=== PATIENT | female | born 1940 | race Caucasian/White ===

== ENCOUNTER → 2024-07-11 | Outpatient (CLI) | payer MEDICARE, BC, SELFPAY ==
--- NOTE | 2024-07-11 14:47 | XR_ITS ---
Examination: Knee bilateral, 6 views Technique: Knee AP, lateral, oblique each knee total 6 views Date and time of exam: July 11, 2024 1541 hours INDICATIONS: Patient fell one month ago with injury to both knees, bilateral knee pain. 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
--- NOTE | 2024-07-11 14:47 | XR_ITS ---
Examination: PA lateral chest 2 views TECHNIQUE: Upright PA lateral chest 2 views Exam date and time: July 11, 2024 1457 hours Comparison 07/18/2023 INDICATIONS: Coughing beginning 3 months ago FINDINGS: No significant cardiac enlargement No pneumonia or pulmonary edema Intact osseous structures IMPRESSION: No active disease
== END | disposition home or self-care (01) ==
LOC: CDIM 14:21
PROVIDERS: PCP Internal Medicine; Referring Provider Internal Medicine; Visit Provider Internal Medicine
DX: R05.3 Chronic cough (principal); S89.92XA Unspecified injury of left lower leg, initial encounter; S89.91XA Unspecified injury of right lower leg, initial encounter; W19.XXXA Unspecified fall, initial encounter
CPT/HCPCS: 71046; 73562

== ENCOUNTER → 2024-08-22 | Outpatient (CLI) | payer MEDICARE, BC, SELFPAY ==
[2024-08-22 11:57] LABS: Misc Send Out* See Sep Rpt
[2024-08-22 12:41] LABS: C-Reactive Protein < 0.4 mg/dL (0.0-0.9)
[2024-08-22 12:44] LABS: Vitamin D 25 Hydroxy Total 86.6 ng/mL (7.3-40.2)
[2024-08-22 12:46] LABS: Sed Rate (ESR) 39 mm/hr (0-30)
[2024-08-22 13:29] LABS: RA Screen Negative (Negative)
[2024-08-27 06:33] LABS: ANA Screen, IFA NEGATIVE (NEGATIVE)
== END | disposition home or self-care (01) ==
PROVIDERS: PCP Internal Medicine; Referring Provider Internal Medicine; Visit Provider Internal Medicine
DX: E03.9 Hypothyroidism, unspecified (principal); E55.9 Vitamin D deficiency, unspecified; F32.89 Other specified depressive episodes; I10 Essential (primary) hypertension; J45.40 Moderate persistent asthma, uncomplicated; K21.9 Gastro-esophageal reflux disease without esophagitis; M54.42 Lumbago with sciatica, left side; M79.7 Fibromyalgia; R05.3 Chronic cough
CPT/HCPCS: 36415; 82306; 85652; 86038; 86140; 86200; 86430

== ENCOUNTER → 2024-10-08 | Outpatient (CLI) | payer MEDICARE, BC, SELFPAY ==
--- NOTE | 2024-10-08 15:30 | XR_ITS ---
Examination: CT chest, without intravenous contrast. Sagittal and coronal 2-D reconstructions. Exam date and time: October 08, 2024 1601 hours INDICATIONS: Coughing congestion beginning one year ago CTDI:vol (mGy) 13.4 DLP: (mGycm) 461 Technique: Multiple 3.0 mm axial sections of the chest to been obtained. Bone and lung density settings are obtained. Sagittal and coronal 2-D reconstructions have been obtained. Low dose protocols were performed. One or more of the following dose reduction techniques were used; automated exposure control, adjustment of the mA and/or KV according to patient size, use of iterative reconstruction technique. Findings: No thoracic aortic aneurysm dilatation Pulmonary artery segments are not enlarged Mild calcification left anterior descending coronary artery Mild enlargement cardiac contour No paratracheal tracheobronchial or bronchopulmonary adenopathy No pneumonia, pulmonary edema, pleural disease or pulmonary nodules No focal liver or splenic lesions Absent gallbladder No pancreatic or adrenal mass Kidneys partially visualized no hydronephrosis Mild thoracic spondylosis IMPRESSION: No mediastinal lymphadenopathy No pneumonia, pulmonary edema, pleural disease or pulmonary nodules
== END | disposition home or self-care (01) ==
PROVIDERS: PCP Internal Medicine; Referring Provider Internal Medicine; Visit Provider Internal Medicine
DX: R05.3 Chronic cough (principal)
CPT/HCPCS: 71250

== ENCOUNTER → 2024-12-13 | Outpatient (CLI) | payer MEDICARE, BC, SELFPAY ==
[2024-12-13 10:37] LABS: Basophils # (Auto) 0.1 Thou/mm3 (0.0-0.2); Basophils % (Auto) 1 % (0-2.5); Eosinophils # (Auto) 0.3 Thou/mm3 (0.0-0.5); Eosinophils % (Auto) 4 % (0-10); Hematocrit 39.4 % (36.0-46.0); Hemoglobin 13.3 g/dL (12.0-16.0); Immature Granulocytes % (Auto) 0 % (0-0); Immature Granulocytes Auto 0.01 Thou/mm3 (0.00-0.00); Lymphocytes # (Auto) 1.8 Thou/mm3 (1.0-4.8); Lymphocytes % (Auto) 26 % (10-50); Mean Corpuscular HGB Conc 33.8 g/dl (31.0-37.0); Mean Corpuscular Volume 92 fL (80-100); Monocytes # (Auto) 0.7 Thou/mm3 (0.0-0.8); Monocytes % (Auto) 9 % (0-12); Neutrophils # (Auto) 4.2 Thou/mm3 (1.8-7.7); Neutrophils % (Auto) 60 % (37-80); Nucleated Red Blood Cell % 0 /100 WBC (0); Platelet Count 278 Thou/mm3 (140-440); RDW Standard Deviation 43.9 fL (36.4-46.3); Red Blood Count 4.29 Miln/mm3 (4.00-5.20)
[2024-12-13 10:50] LABS: Glucose Estimated Average 97 mg/dL (80-131)
[2024-12-13 10:56] LABS: Vitamin B12 481 pg/mL (211-911); Vitamin D 25 Hydroxy Total 54.9 ng/mL (7.3-40.2)
[2024-12-13 10:57] LABS: Alanine Aminotransferase 13 U/L (10-49); Albumin, Serum 4.2 gm/dL (3.4-4.8); Albumin/Globulin Ratio 1.6 (1.2-2.2); Alkaline Phosphatase 67 U/L (46-116); Anion Gap 6 (7-16); Aspartate Amino Transferase 21 U/L (0-34); BUN/Creatinine Ratio 24 Ratio (12-20); Blood Urea Nitrogen 29 mg/dL (9-23); Calcium 9.7 mg/dL (8.3-10.6); Calcium (Corrected) 9.7 mg/dL (8.5-10.1); Carbon Dioxide 27.6 mMol/L (20.0-31.0); Cardiac Risk Estimate 3.5 RATIO (3.7-5.6); Chloride 108 mMol/L (98-107); Cholesterol 198 mg/dL (132-200); Creatinine (Component) 1.2 mg/dL (0.6-1.3); Globulin 2.6 gm/dL (2.3-3.5); Glucose 97 mg/dL (74-106); HDL Cholesterol 56 mg/dL (40-60); LDL Cholesterol,Calculated 117 mg/dL (0-130); Osmolality,Calculated 288 (275-295); Potassium 4.2 mMol/L (3.4-5.1); Sodium 142 mMol/L (136-145); Thyroid Stimulating Hormone 1.55 uIU/mL (0.55-4.78); Total Protein 6.8 gm/dL (5.7-8.2); Triglycerides 124 mg/dL (30-150); eGFR 45 See Note
== END | disposition home or self-care (01) ==
LOC: COPL 09:46
PROVIDERS: PCP Internal Medicine
DX: E03.9 Hypothyroidism, unspecified (principal); E55.9 Vitamin D deficiency, unspecified; I10 Essential (primary) hypertension; Z68.34 Body mass index [BMI] 34.0-34.9, adult
CPT/HCPCS: 36415; 80053; 80061; 82306; 82607; 83036; 84443; 85025

== ENCOUNTER → 2025-02-26 | Outpatient (CLI) | payer MEDICARE, BC, SELFPAY ==
--- NOTE | 2025-02-26 15:24 | XR_ITS ---
EXAMINATION: Cervical spine, 5 views Technique: Cervical spine AP, AP odontoid, lateral, bilateral obliques, 5 views Exam date and time: February 26, 2025 1528 hours INDICATIONS: Neck pain beginning 4 months ago FINDINGS: Prominent osteopenia No cervical fracture There is no diagnostic visualization C7 Mild disc narrowing C5-C6 with mild bilateral neural foraminal stenosis Heavy calcification right carotid artery IMPRESSION: Limited study Mild degenerative disc disease C5-C6 with mild bilateral neural foraminal stenosis at this level Heavy soft tissue right carotid artery calcification, consider correlation with carotid Doppler sonography follow-up
== END | disposition home or self-care (01) ==
LOC: CDIM 15:13
PROVIDERS: PCP Internal Medicine; Referring Provider Chiropractor; Visit Provider Chiropractor
DX: M50.322 Other cervical disc degeneration at C5-C6 level (principal); M48.02 Spinal stenosis, cervical region; I65.21 Occlusion and stenosis of right carotid artery
CPT/HCPCS: 72050

== ENCOUNTER → 2025-04-07 | Outpatient (CLI) | payer MEDICARE, BC, SELFPAY ==
[2025-04-07 13:31] LABS: Vitamin D 25 Hydroxy Total 25.4 ng/mL (7.3-40.2)
== END | disposition home or self-care (01) ==
PROVIDERS: PCP Internal Medicine
DX: E55.9 Vitamin D deficiency, unspecified (principal)
CPT/HCPCS: 36415; 82306

== ENCOUNTER 2025-04-16 15:00 | Outpatient (RCR) | payer MEDICARE, BC, SELFPAY ==
--- NOTE | 2025-04-07 14:35 | PT.OIERPT ---
PT OP Initial Eval Patient Information Outpatient Physical Therapy Treatment Date: 04/07/25 Visit Reasons: Cervicalgia Medical Diagnosis: M54.2 Treatment Dx #1: Neck Pain Treatment Dx #2: C/S Mobility Deficits Start of Care: 04/07/25 Date of Onset: October 2024 Smoking Status Smoking Status: Never smoker Initial Assessment Subjective: Pt is a 84 y/o female reports of neck pain since October 2024. Pt's pain is insidious onset. Pt's average neck pain is 5/10 without arm pain. Pt's most recent xray showed mild stenosis at c5-c6 segment. 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 Pt's director personal is monitoring the occlusion and has a follow up appt in a few weeks. Pt has difficulty with turning her head, driving, cooking, cleaning, balance, and performing recreational activities. Objective: C/S AROM: all motions are 75 % towards end range with pain BUE AROM: all motions are WNL BUE MMTs: grossly 3+/5 Palpation: TTP and increase tone levator and upper trape R>L; Hypomobile C5-C6 facets Scapula MMTs: grossly 3/5 DNF Endurance Test: 6 sec Assessment: Pt demonstrate c/s mobility deficits with pain R>L leading to difficulty with ADLs. Pt will benefit from physical therapy yo increase ROM, strength, and work on flexibility Short Term and Retirement Goals 1) Increase C/S AROM WNL in 6 wks to be able to perform recreational activities 2) Decrease neck pain to 2/10 in 6 wks to be able to drive 3) Increase BUE MMTs grossly to 4-/5 in 6 wks to be able to cook and clean 4) Increase DNF endurance test to 20 sec in 6 wks to be able to perform chores 5) Indep with HEP Treatment Plan 1) Manual Therapy 2) Therapeutic Activities 3) Therapeutic Exercises 4) Modalities (ice, heat) Frequency and Duration: 2 x wk for 6 wks Certification Dates: 04/07/25 to 07/08/25 Procedure Charges OP PT Eval Mod Complex 30 minutes: Yes
--- NOTE | 2025-04-14 12:08 | PT.ODAYNRPT ---
PT Outpatient Daily Note OP Daily Note Outpatient Physical Therapy Treatment Date: 04/14/25 Visit Reasons: Cervicalgia Subjective: Pt's neck feels tight. Pt still notice intermittent pain. Objective: Please see flow chart for list of ther ex performed Assessment: decrease neck pain post PT session. cues to decrease c/s extension with seated chin tuck exercise Plan: Continue with PT Length of Time (minutes) of Treatment: 30 Minutes Procedure Charges Therapeutic Exercise 30 minutes: Yes
--- NOTE | 2025-04-16 16:13 | PTNOTE_ITS ---
PT Outpatient Daily Note OP Daily Note Outpatient Physical Therapy Treatment Date: 04/16/25 Visit Reasons: Cervicalgia Subjective: Pt reports neck pain and stiffness. Objective: Please see flow sheet for ther ex list. Assessment: Verbal cues and demonstration to perform cervical retraction with desired motion and to avoid cervical extension with exercise. Plan: Assess response to treatment. Length of Time (minutes) of Treatment: 30 Minutes CLEANING MAID Service Modifier Method I: Divide the number of min of care provided by the CLEANING MAID/JESSICA by the total min of care provided then multiply by 100. If greater than 11 percent modifier is required. Method II: Divide the total time of care provided to patient by 10 (round to the nearest whole number) and add 1 min. to set the minimum time requirement. If treatment total was 60 min., then 10% of 6 min PT CQ modifier applied: CQ Modifier applied Procedure Charges Therapeutic Exercise 30 minutes: Yes
== END 2025-04-20 23:59 | disposition home or self-care (01) ==
LOC: CPTX 15:00
PROVIDERS: PCP Internal Medicine; Referring Provider Internal Medicine; Visit Provider Internal Medicine
DX: M48.02 Spinal stenosis, cervical region (principal)
CPT/HCPCS: 97110; 97162

== ENCOUNTER 2025-05-09 14:00 | Outpatient (RCR) | payer MEDICARE, BC, SELFPAY ==
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
--- NOTE | 2025-04-24 11:03 | PTNOTE_ITS ---
PT Outpatient Daily Note OP Daily Note Outpatient Physical Therapy Treatment Date: 04/24/25 Visit Reasons: neck pain Subjective: Pt reports of less limitation with turning her head while driving. Pt wants to do 2 more sessions and will decide if she wants to continue physical therapy. Objective: Please see flow chart for list of ther ex performed Assessment: decrease suboccipitals tightness post STM. Pt demonstrate improved c/s rotation post PT session Plan: Continue with PT Length of Time (minutes) of Treatment: 30 Minutes Procedure Charges Therapeutic Exercise 15 minutes: Yes Manual Financial Aid Advisor 15 minutes: Yes
--- NOTE | 2025-04-29 14:20 | PT.ODAYNRPT ---
PT Outpatient Daily Note OP Daily Note Outpatient Physical Therapy Treatment Date: 04/29/25 Visit Reasons: neck pain Subjective: Pt notice for the past month her hands especially in the thum region has been cramping or feeling stuck . It takes a few seconds before she can start moving the area. Pt's PCP is unaware of the new symptoms and she has not been screened out. Pt's neck is overall feeling better and notice improvement with her ROM. Objective: Please see flow chart for list of ther ex performed Assessment: pre and post STM notice decrease suboccipital muscular tension. Pt instructed to make appt with PCP to consult further regarding her hand concerns reported to therapist. Pt gave verbal consent and will make an appt post PT session. Plan: Continue with PT Length of Time (minutes) of Treatment: 30 Minutes Procedure Charges Traction Mechanical: Yes Therapeutic Exercise 15 minutes: Yes
--- NOTE | 2025-05-01 14:11 | PT.ODAYNRPT ---
PT Outpatient Daily Note OP Daily Note Outpatient Physical Therapy Treatment Date: 05/01/25 Visit Reasons: neck pain Subjective: Pt's neck ache and sore after last session. Pt was also watching a movie which she had to maintain her head position to the screen. Pt follow up with PCP regarding her bilateral hand/thumb cramping concern. Pt was given gabapentin and advised to monitor if symptoms worse to follow up with PCP immediately. Objective: Please see flow chart for list of ther ex performed Assessment: decrease upper trape and levator prior and post PT session. Pt continues to have suboccipital tension which STM helped relief pain Plan: Continue with PT Length of Time (minutes) of Treatment: 30 Minutes Procedure Charges Therapeutic Exercise 15 minutes: Yes Manual Human Resources Intern 15 minutes: Yes
--- NOTE | 2025-05-06 09:13 | PTNOTE_ITS ---
PT Outpatient Daily Note OP Daily Note Outpatient Physical Therapy Treatment Date: 05/06/25 Visit Reasons: neck pain Subjective: Pt mentioned that neck feels better, however, she's been taking muscle relaxers and neurotin where it makes her feels sluggish. Objective: Please see flow chart for list of ther ex performed Assessment: continue to exhibit tone in suboccipitals; decrease post STM. Pt instructed to take medication as prescribed and if side effect is too severe to touch base with PCP for further consultation. Pt gave verbal consent and understading Plan: Continue with PT Length of Time (minutes) of Treatment: 30 Minutes Procedure Charges Therapeutic Exercise 15 minutes: Yes Manual Radiotelegraphist 15 minutes: Yes
--- NOTE | 2025-05-09 15:20 | PT.ODS1RPT ---
PT OP Progress/Discharge Note Date of Service: 05/09/25 Progress Note/DC Note Progress Note/Discharge Note: DC Note Patient Information Visit Reasons: neck pain Medical Diagnosis: M54.2 Treatment Dx #1: Neck Pain Service Discharge Date: 05/09/25 Status Subjective: Pt's neck is somewhat better since starting physical therapy. Pt has been able to resume ADLs, chores, self care, and light lifting. At this time Pt feels comfortable being release from care and will follow up with PCP as needed. Pt also mentioned cramping in her hands has been less lately. Objective: C/S AROM: all motions are WFL BUE AROM: all motions are WNL BUE MMTs: grossly 3+/5 Scapula MMTs: grossly 3+/5 DNF Endurance Test: 10 sec Assessment: Pt demonstrate functional c/s mobility and strength and has allowing her to resume light ADLs with less limitation. Pt will no longer benefit from physical therapy due to plateau towards goals. Pt advised to follow up with PCP for other options of conservative treatments to the cervical spine; thank you for your referrals Plan: D/C home and follow up with PCP Procedure Charges Therapeutic Exercise 15 minutes: Yes Manual Trim Machine Operator 15 minutes: Yes
== END 2025-05-20 23:59 | disposition home or self-care (01) ==
LOC: CPTX 14:00
PROVIDERS: PCP Internal Medicine; Referring Provider Internal Medicine; Visit Provider Internal Medicine
DX: M48.02 Spinal stenosis, cervical region (principal)
CPT/HCPCS: 97012; 97110; 97140

== ENCOUNTER → 2025-06-09 | Outpatient (CLI) | payer MEDICARE, BC, SELFPAY ==
--- NOTE | 2025-06-09 16:24 | XR_ITS ---
EXAMINATION: PA lateral chest 2 views TECHNIQUE: Upright PA lateral chest 2 views Date and time: June 09, 2025, 1648 hours, comparison July 11, 2024 INDICATIONS: Coughing beginning 1 week ago. FINDINGS: Mild prominence left ventricle No lobar pneumonia or pulmonary edema The osseous structures are intact IMPRESSION: No interval pneumonia or pulmonary edema
== END | disposition home or self-care (01) ==
LOC: CDIM 16:21
DX: R05.9 Cough, unspecified (principal)
CPT/HCPCS: 71046